=== PATIENT | female | born 1970 | race Two or more races ===

== ENCOUNTER 2019-07-26 20:15 | Emergency (ER) | payer SELFPAY ==
[~2019-07-26] VITALS: Ht 160 cm; Wt 97.0 kg
[2019-07-26 20:46] VITALS: BP 179/86
--- NOTE | 2019-07-26 21:39 | PHYS DOC ---
Past Medical History Past Medical History: No Pertinent History (MALCOM MITCHELL APRN) Past Surgical History: No Surgical History (MALCOM MITCHELL APRN) Alcohol Use: None (MALCOM MITCHELL APRN) Attending Signature I have participated in the care of this patient and I have reviewed and agree with all pertinent clinical information above including history, exam, and recommendations. (PERNELL MCDANIELS MD) Adult General Chief Complaint Chief Complaint: MECHANICAL FALL HPI HPI Patient is a 49 year old female who presents to the emergency department with complaints of left rib pain for the last month after a fall in shower. She states she has had a cough for the last 3 weeks. She reports increased pain with coughing in her left ribs. Patient also reports shortness of breath. She denies coughing up any blood. Patient denies any fever, wheezing, sore throat, abdominal pain, nausea, vomiting, diarrhea, or hematuria. She currently rates her pain at 10,000 mg Berman, she reports taking ibuprofen for relief of the pain with minimal benefit. All other ROS is neg unless otherwise noted in HPI. (MALCOM MITCHELL APRN) Review of Systems Review of Systems See Above (MALCOM MITCHELL APRN) Current Medications Current Medications Current Medications Medications (Trade) Dose Ordered Sig/Brayden Start Time Stop Time Status Last Admin Dose Admin Acetaminophen/ Hydrocodone Bitart (Lortab 7.5/325) 1 tab STK-MED ONCE 07/26/19 22:34 07/26/19 22:34 DC (PERNELL MCDANIELS MD) Allergies Allergies Allergies Coded Allergies Type Severity Reaction Last Updated Verified No Known Drug Allergies 07/26/19 No (PERNELL MCDANIELS MD) Physical Exam Physical Exam See Above Constitutional: Well developed, well nourished, no acute distress, non-toxic appearance, obese. [] HENT: Normocephalic, atraumatic, bilateral external ears normal, oropharynx moist, no oral exudates, nose normal. [] Eyes: PERRLA, EOMI, conjunctiva normal, no discharge. [] Neck: Normal range of motion, no stridor. [] Cardiovascular:Heart rate regular rhythm, no murmur [] Lungs & Thorax: Bilateral breath sounds diminished in bilateral bases, no retractions, left lateral ribs TTP, no crepitus, no subcutaneous emphysema, regular rate Abdomen: soft, no tenderness, no masses, no pulsatile masses. [] Skin: Warm, dry, no erythema, no rash. [] Back: No midline bony tenderness Extremities: No cyanosis, ROM intact Neurologic: Alert and oriented X 3, no focal deficits noted. [] Psychologic: Affect normal, judgement normal, mood normal. [] (MALCOM MITCHELL APRN) Current Patient Data Vital Signs Vital Signs Date Time Temp Pulse Resp B/P (MAP) Pulse Ox O2 Delivery O2 Flow Rate FiO2 07/26/19 22:35 98 Room Air 07/26/19 20:46 98.7 79 22 179/86 (117) 98.7 (PERNELL MCDANIELS MD) EKG EKG [] (MALCOM MITCHELL APRN) Radiology/Procedures Radiology/Procedures PROCEDURE: RIBS LEFT AND PA CHEST RIBS LEFT AND PA CHEST History: Fall. Pain. Technique: PA view the chest and 3 additional views of the left ribs. Comparison: None. Findings: Low lung volumes. Patchy central and bibasilar opacities. No pneumothorax. No pleural effusion. Borderline enlarged cardiac size. Acute left anterior lateral seventh rib fracture. Impression: 1. Low lung volumes with patchy central and bibasilar opacities, may represent atelectasis. 2. Acute left anterior lateral seventh rib fracture. [] (MALCOM MITCHELL APRN) Course & Med Decision Making Course & Med Decision Making Pertinent Labs and Imaging studies reviewed. (See chart for details) [] (MALCOM MITCHELL APRN) Dragon Disclaimer Dragon Disclaimer This electronic medical record was generated, in whole or in part, using a voice recognition dictation system. (MALCOM MITCHELL APRN) Departure Departure Impression: Primary Impression: Left rib fracture Disposition: 01 HOME, SELF-CARE Condition: STABLE Referrals: NO PCP (PCP) Patient Instructions: Rib Fracture, [id number] Additional Instructions: Fill the prescription and take as directed for severe pain. Hold a pillow and cough at least 2 times every hour while awake. Follow up with your primary care doctor in 1-2 days, Return to the ER if symptoms worsen. Scripts Hydrocodone Bit/Acetaminophen (HYDROCODONE-APAP 5-325 ) 1 Tab Tablet 1 TAB PO PRN Q6HRS PRN for SEVERE PAIN 7-10 for 3 Days, #10 TAB 0 Refills Prov: MALCOM MITCHELL APRN 07/26/19 Problem Qualifiers Primary Impression: Left rib fracture Encounter type: initial encounter Rib fracture type: single rib Fracture type: closed Qualified Codes: S22.32XA - Fracture of one rib, left side, initial encounter for closed fracture MALCOM MITCHELL APRN Jul 26, 2019 21:39 PERNELL MCDANIELS MD Jul 27, 2019 01:48
--- NOTE | 2019-07-26 22:20 | RAD ---
RIBS LEFT AND PA CHEST History: Fall. Pain. Technique: PA view the chest and 3 additional views of the left ribs. Comparison: None. Findings: Low lung volumes. Patchy central and bibasilar opacities. No pneumothorax. No pleural effusion. Borderline enlarged cardiac size. Acute left anterior lateral seventh rib fracture. Impression: 1. Low lung volumes with patchy central and bibasilar opacities, may represent atelectasis. 2. Acute left anterior lateral seventh rib fracture. Electronically signed by: Garth Patino DO (07/26/2019 10:17 PM) [facility]
[2019-07-26] MEDS ORDERED: HYDROcodone/APAP 7.5/325MG 1 TAB TABLET ONE (22:34)
[2019-07-26] MEDS ORDERED: HYDR-2761 PO (22:35)
[2019-07-26] MEDS ORDERED: HYDROcodone/APAP 7.5/325MG 1 TAB TABLET PO ONE (23:00)
== END 2019-07-26 22:40 | disposition home or self-care (01) ==
LOC: ER 20:15
DX: S22.32XA Fracture of one rib, left side, initial encounter for closed fracture (principal); R05 Cough; R07.81 Pleurodynia; R06.02 Shortness of breath; W19.XXXA Unspecified fall, initial encounter; Y93.89 Activity, other specified; Y92.89 Other specified places as the place of occurrence of the external cause; Y99.8 Other external cause status
CPT/HCPCS: 71101; 99284